=== PATIENT | male | born 1995 | race African-American/Black ===

== ENCOUNTER 2019-07-31 11:06 | Emergency (ER) | payer SELFPAY ==
[~2019-07-31] VITALS: Ht 175.3 cm; Wt 80.0 kg
[2019-07-31 11:10] VITALS: BP 0/0
== END 2019-07-31 11:19 | disposition left against medical advice (07) ==
LOC: ER 11:06
DX: F41.9 Anxiety disorder, unspecified (principal); F15.129 Other stimulant abuse with intoxication, unspecified
CPT/HCPCS: 99283

== ENCOUNTER 2019-07-31 17:26 | Emergency (ER) | payer SELFPAY ==
[~2019-07-31] VITALS: Ht 170.2 cm; Wt 80.0 kg
[2019-07-31 17:30] VITALS: BP 158/80
== END 2019-07-31 17:51 | disposition left against medical advice (07) ==
LOC: ER 17:26
DX: T50.901A Poisoning by unspecified drugs, medicaments and biological substances, accidental (unintentional), initial encounter (principal); Z53.21 Procedure and treatment not carried out due to patient leaving prior to being seen by health care provider; Y92.89 Other specified places as the place of occurrence of the external cause